=== PATIENT | male | born 1980 | race Caucasian/White ===

== ENCOUNTER 2017-04-09 22:48 | Emergency (ER) | payer OTHER ==
[~2017-04-09 22:48] MED LIST: PROPARACAINE 0.5% OPHTH DROPS 15 ML BTL ONE
[2017-04-09 22:53] VITALS: BP 142/76; PULSE 90; RESP 18; TEMP 97.5
[2017-04-09] MEDS ORDERED: TOBRAMYCIN 0.3% OPHTH OINT 3.5 GM TUBE LEFT EYE STA (23:12)
[2017-04-09] MEDS ORDERED: PROPARACAINE 0.5% OPHTH DROPS 15 ML BTL LEFT EYE SCH (23:15)
--- NOTE | 2017-04-09 23:29 | ED ---
General Adult HPI - General Chief complaint: Eye Problems Stated complaint: eye problems Time Seen by Provider: 04/09/17 22:57 Source: patient, RN notes reviewed, old records reviewed Mode of arrival: ambulatory Limitations: no limitations - History of Present Illness Initial comments: chief complaint and history of present illness patient states 4 days ago he got a foreign body was left eye. It didn't hurt to yesterday. He has discomfort to the upper lateral eyelid visual acuity is 20/20 right eye 20/50 left eye patient's been rubbing the eye is red and tearing - Related Data Home Medications Medication Instructions Recorded Confirmed Meloxicam 15 mg PO DAILY 06/22/16 07/02/16 Amitriptyline HCl [Elavil] 100 mg PO PC-SUPPER 07/02/16 07/02/16 QUEtiapine [SEROquel] 50 mg PO TID 07/02/16 07/02/16 Previous Rx's Medication Instructions Recorded Gabapentin [Neurontin] 800 mg PO TID #90 cap 06/28/16 LORazepam [Ativan] 1 mg PO Q8HR PRN #20 tab 06/28/16 Nicotine 21Mg/24Hr Patch [Habitrol] 1 patch TRANSDERM DAILY #30 patch 06/28/16 Allergies Allergy/AdvReac Type Severity Reaction Status Date / Time ibuprofen Allergy Rash/Hives Verified 04/09/17 22:53 Review of Systems ROS Statement: Those systems with pertinent positive or pertinent negative responses have been documented in the HPI. review of systems all other systems reviewed his only complaint at this time is left eye discomfort foreign body sensation. Past medical problems fibromyalgia rheumatoid arthritis hernia repair and polysubstance abuse including heroin and marijuana and opiates and prescription drugs. The patient smokes every day. Occasional alcohol use strongly encouraged to stop smoking ROS Other: All systems not noted in ROS Statement are negative. Past Medical History Past Medical History: Fibromyalgia, Rheumatoid Arthritis (RA) History of Any Multi-Drug Resistant Organisms: None Reported Past Surgical History: Hernia Repair Past Psychological History: ADD/ADHD, Anxiety, Depression Smoking Status: Current every day smoker Past Alcohol Use History: Occasional Additional Past Alcohol Use History / Comment(s): Patient is a smoker one pack per day. He states he uses marijuana occasionally. He snorts cocaine and heroin. He states he quit heroin a few weeks ago. He also buys prescription drugs on the streets which include fentanyl patches and pills. He currently is living with his with his in-laws and 2 children one boy 3 years of age and one girl that is 1 year old. Past Drug Use History: Cocaine, Heroin, Marijuana, Opiates, Prescription Drug Abuse - Past Family History Father Additional Family Medical History / Comment(s): Father is alive at age 61 with history of myocardial infarction 3 and coronary artery disease. Mother Additional Family Medical History / Comment(s): Mother is alive at age 58 with history of bipolar disorder and anxiety. Sister(s) Additional Family Medical History / Comment(s): Patient has one sister with bipolar disorder, schizophrenia. Patient does not have any brothers. General Exam - General Exam Comments Initial Comments: General: The patient is awake and alert,playing of pain, performed by sensation left eye. Visual acuity in that affected eyes 20/50. Vital signs temp 97.5 pulse 90 respiratory rate 18 pulse ox 97% room air blood pressure 142/76 Eye: Pupils are equal, round and reactive to light, extra-ocular movements are intact ; left conjunctiva is mildly injected. Hearing. Proparacaine used to numb the eye and then stained with fluorescein and rinsed well. Examined with both black lamp and high powered ophthalmoscope. No foreign body couldn't be found in the upper or lower lid or lid margins. No corneal abrasion but there was mild irritation and fluorescein staining to the upper lateral aspect of the orbit. Ears, nose, mouth and throat: There are moist mucous membranes reviewed no other medical problems this time. Limitations: no limitations Course Vital Signs 04/09/17 22:50 Temperature 97.5 F L Pulse Rate 90 Respiratory 18 Rate Blood Pressure 142/76 O2 Sat by Pulse 97 Oximetry Medical Decision Making - Medical Decision Making the patient's eyes examined no foreign body could be found. It was rinsed. The patient had Tobrex ointment put in the eye. Told to wear cold compress over the eye take Tylenol or ibuprofen for pain. If not 100% normal and 36 hours to return emergency room or follow-up with the on-call eye doctor Dr. brannon Disposition Clinical Impression: Irritation of left eye Disposition: HOME SELF-CARE Condition: Fair Instructions: Eye Foreign Body (ED) Additional Instructions: Put the ophthalmic ointment in the eye every 4-6 hours for the next 24-48 hours if still having discomfort and foreign body sensation follow-up with on-call eye doctor Referrals: None,Stated [Primary Care Provider] - 1-2 days Cedric Esteves MD [STAFF PHYSICIAN] - 1-2 days Time of Disposition: 23:28
== END 2017-04-09 23:37 | disposition home or self-care (01) ==
LOC: EC 22:48
DX: H57.8 Other specified disorders of eye and adnexa (principal); M06.9 Rheumatoid arthritis, unspecified; F32.9 Major depressive disorder, single episode, unspecified; F41.9 Anxiety disorder, unspecified; F17.200 Nicotine dependence, unspecified, uncomplicated; Z79.899 Other long term (current) drug therapy; Z88.6 Allergy status to analgesic agent
CPT/HCPCS: 99283